=== PATIENT | female | born 1955 | race Caucasian/White ===

== ENCOUNTER 2019-04-13 07:49 | Emergency (ER) | payer OTHER ==
[~2019-04-13] VITALS: Ht 160 cm; Wt 74.8 kg
[~2019-04-13 07:49] MED LIST: DIOVAN40 MG
[2019-04-13] MEDS ORDERED: SYNTHROID112 MCG (07:59)
[2019-04-13] MEDS ORDERED: NORVASC2.5 M1 (08:00)
[2019-04-13] MEDS ORDERED: HYZAAR 100-251 EACH (08:00)
== END 2019-04-13 11:36 | disposition home or self-care (01) ==
LOC: ER 07:49
DX: M54.32 Sciatica, left side (principal)